=== PATIENT | male | born 1930 | race Caucasian/White ===

== ENCOUNTER 2016-08-25 21:54 | Observation (INO) | payer MEDICARE ==
--- NOTE | ~2016-08-25 | CN ---
Consultation Report [facility] [address] [place]. [address] NAME: KORI HAYDEN : 28 STATUS : ADM Anahi PAT#: [id number] AGE: 85 ADM/REG DATE : 08/25/16 MR#: [id number] REPORT SERV DATE: 08/27/16 DICTATED BY: MICHAEL SHEPARD DATE: 08/26/16 REPORT STATUS : Draft TRANSCRIBED BY: MODL DATE: 08/26/16 CARDIOLOGY CONSULTATION DATE OF CONSULTATION: HISTORY OF PRESENT ILLNESS: The patient is an 85-year-old, white male, who is status post stenting of the proximal left circumflex coronary artery 11/21/2015. At the time of his last cardiac catheterization, left ventricular ejection fraction was 40%. He now presents with syncope and bradycardia. He also was anemic with a hematocrit of 26.3 at the time of admission. His heart rate was running in the 50s. The patient has had his Brilinta and Lopressor stopped. Currently, he is in no distress. PAST MEDICAL HISTORY: Remarkable for coronary artery disease, hypertension, and Alzheimer's. SOCIAL HISTORY: The patient lives in a detention. Does not smoke. FAMILY HISTORY: Positive for coronary disease. REVIEW OF SYSTEMS: The patient has cough, wheeze, sputum production, vomiting, diarrhea, or dysuria. PHYSICAL EXAMINATION: VITAL SIGNS: Blood pressure is 105/70, heart rate is 50 and regular, respirations 16 and nonlabored. HEENT: Remarkable for ecchymosis in the right paraorbital area from his previous fall. NECK: Shows no jugular venous distention with good carotid upstroke. CHEST: Clear. CARDIOVASCULAR: The PMI is lateral to the midclavicular line. S1 is normal. S2 is narrowly split. No gallop is present. ABDOMEN: Soft, nontender with normal bowel sounds. EXTREMITIES: Show no cyanosis, clubbing, or edema. SKIN: Warm and dry with no pallor or icterus. NEURO/PSYCH: The patient is oriented x3 with appropriate affect. DIAGNOSTIC DATA: EKG shows sinus bradycardia with an inferior scar. IMPRESSION: 1. Status post drug-eluting stent to the left circumflex coronary artery on 11/21/2015. 2. Moderate left ventricular dysfunction with an ejection fraction of 40% at the time of last cardiac catheterization. 3. Bradycardia, on Lopressor. 4. Anemia, possibly secondary to gastrointestinal bleed. PLAN: 1. Hold Brilinta and Lopressor. Consultation Report [place] [address] [place]. [address] NAME: KORI HAYDEN : 29 STATUS : ADM Anahi PAT#: [id number] AGE: 85 ADM/REG DATE : 08/25/16 MR#: [id number] REPORT SERV DATE: 08/27/16 DICTATED BY: MICHAEL SHEPARD DATE: 08/26/16 REPORT STATUS : Draft TRANSCRIBED BY: MODL DATE: 08/26/16 2. Transfuse p.r.n. to keep hematocrit in the 28 to 30 range. 3. Check echocardiogram. 4. May need a pacemaker if the patient remains bradycardic after discontinuation of beta blockade. Thank you very much for this consultation. SS/TESSA Michael Shepard M.D., F.A.C.C. / [id number] CC: MD KRYSTA Corrales MD
--- NOTE | ~2016-08-25 | HP ---
History And Physical [place] [id number] [facility] [place]. [address] NAME: KORI HAYDEN : 29 STATUS : ADM Anahi PAT#: [id number] AGE: 85 ADM/REG DATE : 08/25/16 MR#: [id number] REPORT SERV DATE: 08/26/16 DICTATED BY: SOY ALBARRAN DATE: 08/26/16 REPORT STATUS : Draft TRANSCRIBED BY: MODL DATE: 08/26/16 DATE OF ADMISSION: 08/25/2016 CHIEF COMPLAINT: Syncope. HISTORY OF PRESENT ILLNESS: This is an 85-year-old male with a history of hypertension, coronary artery disease, and advanced dementia with Alzheimer's dementia, who presents to the emergency room at [facility] after he had the above- mentioned complaint. History is obtained from the patient's daughter who is at bedside, and reviewing data available on the [employer] system as well. According to the patient's daughter, he had a syncopal episode last Wednesday when his took him from the jail that he usually resides and back home for the weekend. Apparently, he was in the shower with his close at hand when he suddenly vomited and had a syncopal episode and bent down. According to the daughter, this is usually how it happens when he suddenly goes pale, has episode of vomiting and then passes out. He has done this many times. He was taken to [facility] in [place], [place] last Wednesday after this episode, where he was checked out and then discharged home. Today Mr. Hayden was at the jail sitting in a chair when he suddenly for no apparent reason slumped over and passed out. He quickly thereafter became unresponsive as well and quit breathing two or three times, each time came back on his own. They called EMS. The patient was brought here to the emergency room. He has advanced dementia and is unable to contribute anything in the fall of history. In the emergency room, initial workup revealed he had sinus bradycardia at a rate of 50 to 53. He had anemia and his stool Hemoccult was positive. Upon arrival, his blood pressure was 62/40 as well. Hospitalist Service is asked to admit him for further evaluation and treatment. At the time of my evaluation, he denied any chest pain or palpitations. He apparently had no orthopnea. His daughter said, he has not had any recent episodes of cough, fever, or chills. He has not had any nausea or diarrhea. He has had syncopal episodes as mentioned above with loss of consciousness today. No history of recent travel or exposures other than those mentioned above. He has had no significant bleeding from anywhere according to the family or the jail. PAST MEDICAL HISTORY: Significant for history of hypertension, coronary artery disease with stent placement, Alzheimer's dementia, Parkinson's disease. SOCIAL HISTORY: He does not drink, smoke, or recreational drugs. FAMILY HISTORY: Noncontributory. MEDICATIONS: Reviewed by me in the chart today and reordered by me. REVIEW OF SYSTEMS: History And Physical [address] [address] NAME: KORI HAYDEN : 29 STATUS : ADM Anahi PAT#: [id number] AGE: 85 ADM/REG DATE : 08/25/16 MR#: [id number] REPORT SERV DATE: 08/26/16 DICTATED BY: SOY ALBARRAN DATE: 08/26/16 REPORT STATUS : Draft TRANSCRIBED BY: TESSA DATE: 08/26/16 Unavailable as mentioned above. PHYSICAL EXAMINATION: GENERAL: On exam, this is a pleasant 85-year-old, who has Alzheimer's dementia and follows few commands. HEENT: His head appears to be atraumatic, normocephalic, although he has a small bruise under his right eye from a fall on Wednesday. His pupils are equal, reacting to light and accommodating. External ocular muscles are intact. Membranes are moist and pink. Sclerae are nonicteric. NECK: Supple with no jugular venous distention, lymphadenopathy, or thyromegaly. LUNGS: Clear to auscultation with no wheezes, rubs, or crackles. HEART: Sounds were regular with no murmurs, rubs, or gallops. ABDOMEN: Soft, nontender. Bowel sounds are present. EXTREMITIES: Showed no cyanosis, clubbing, or edema. NEUROLOGIC: Grossly intact, although he is unable to follow any commands. He is able to move all four extremities. VITAL SIGNS: His temperature upon arrival was 97.6, pulse 53, respirations 14 a minute, and blood pressure upon arrival was 62/40, at the time of my evaluation it was 116/48, oxygen saturations were 95%, breathing 2 L of oxygen via nasal cannula upon arrival. LABORATORY DATA: Reviewed on the [employer] system showed a sodium of 143, potassium 4.5, chloride 112, and CO2 was 25, BUN was 22 with a creatinine of 1.43, and blood glucose was 157. His calcium was 8.4, magnesium was not checked. CBC showed a white blood cell count of 8800, hemoglobin was 8.7, hematocrit 26.3, and platelet count was 186,000. Urinalysis showed trace ketones, thirty protein, large leukocyte esterase, nitrite was negative, there was greater than 134 wbc's and rare bacteria. Films of the CT scan of his brain were reviewed by me on the PACS today and official radiology comment was also reviewed. There is no acute intracranial pathology at this time. A 12-lead EKG done in the emergency room was reviewed and interpreted by me. Per my interpretation, there is sinus bradycardia with a rate of [address]-T changes. IMPRESSION: 1. Syncope. 2. Symptomatic bradycardia. 3. Anemia secondary to blood loss. 4. Gastrointestinal bleeding. 5. Urinary tract infection. 6. Essential hypertension. 7. Hypotension. 8. Coronary artery disease with stent placement. 9. Advanced dementia. 10.Parkinson's disease. PLAN: We will admit Mr. Hayden to the Hospitalist Service with cardiac telemetry and strict bedrest for 24-hour observation period. His recurrent syncopal episodes probably secondary to symptomatic bradycardia. We will consult Dr. Shepard in the morning and may consider a pacemaker. We will hold beta blockers at this time and hold his antihypertensive History And Physical [address] [address] NAME: KORI HAYDEN : 29 STATUS : ADM Anahi PAT#: [id number] AGE: 85 ADM/REG DATE : 08/25/16 MR#: [id number] REPORT SERV DATE: 08/26/16 DICTATED BY: SOY ALBARRAN DATE: 08/26/16 REPORT STATUS : Draft TRANSCRIBED BY: MODCira DATE: 08/26/16 until his blood pressure stabilizes. We will keep him n.p.o. after midnight tonight and consult Gastroenterology to see him in the morning. Meanwhile, we will follow serial hemoglobin, hematocrit levels, type cross and transfuse one unit of packed red cells now. The patient has responded well to IV fluid boluses in the emergency room. We will continue this cautiously and monitor his blood pressure, which is about 105 systolic at this time. We will also obtain cultures and start him on empiric Rocephin intravenously until we get Gram stains back from the urine cultures. We will place him on SCDs for DVT prophylaxis while he is here now. The patient is DNR according to the family and he has this in the chart. I have discussed the above plans with the patient and his daughter. Questions were answered and she is agreeable to the above recommendations. Further recommendations will follow after subspecialists have had a chance to see him. Hospitalist Service will be following him during his stay here. FLOR Soy Albarran M.D. / [id number] CC: MD Shaun Corrales
--- NOTE | ~2016-08-25 | DS ---
Discharge Summary [place] [address] [place]. [address] NAME: KORI HADYEN : 28 STATUS : DIS Anahi PAT#: [id number] AGE: 85 ADM/REG DATE : 08/25/16 MR#: [id number] REPORT SERV DATE: 08/28/16 DICTATED BY: MORRO CEE DATE: 08/27/16 REPORT STATUS : Draft TRANSCRIBED BY: TESSA DATE: 08/27/16 ADMISSION DATE: 08/25/2016 DISCHARGE DATE: 08/27/2016 CONSULTATION: 1. Cardiology, Dr. Michael Shepard. 2. Gastroenterology, Dr. Wilson. INVASIVE PROCEDURE: None. DISCHARGE DIAGNOSES: 1. Syncope. 2. Symptomatic bradycardia. 3. Gastrointestinal bleed. 4. Normocytic anemia secondary to acute blood loss. 5. Asymptomatic candiduria. 6. Hypertension. 7. History of coronary artery disease, status post drug-eluting stent, now off Brilinta due to concern for gastrointestinal bleed and also off beta-ron due to symptomatic bradycardia. 8. Ischemic cardiomyopathy, ejection fraction 40%. 9. History of Parkinson disease. 10.History of advanced dementia. 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 DISCHARGE CONDITION: Stable. HISTORY OF PRESENT ILLNESS: For detailed HPI, please make reference to Darinel Olivier's dictation on 08/26/2016. In brief; this is an 85-year-old male with medical history of hypertension, coronary artery disease status post drug-eluting stent in 11/2010, advanced dementia due to Alzheimer's disease, who presented to the emergency room after a syncopal episode. In the ER, the patient was found to have a heart rate of 50, blood pressure of 62/40. Neurologic exam was consistent with dementia. EKG showed sinus bradycardia without acute ST-T wave changes. LABORATORY DATA: Shows a creatinine of 1.43. Hemoglobin of 8.7, hematocrit of 26.3, platelets of 186. Urinalysis, positive for large leukocyte esterase with negative nitrites. CT of the brain showed no acute intracranial pathology. An assessment of syncope secondary to bradycardia and orthostatic hypotension was made in the ER. The patient was admitted to the Hospitalist Service for further management of syncopal episode as well as gastrointestinal bleed. HOSPITAL COURSE: 1. Syncopal episode secondary to orthostatic hypotension and bradycardia. The patient was started on gentle IV fluid resuscitation. The patient's blood pressure significantly improved and remained stable. The patient's beta-ron was discontinued. Cardiology Discharge Summary [place] [address] [place]. [address] NAME: KORI HAYDEN : 29 STATUS : DIS Anahi PAT#: [id number] AGE: 85 ADM/REG DATE : 08/25/16 MR#: [id number] REPORT SERV DATE: 08/28/16 DICTATED BY: MORRO CEE DATE: 08/27/16 REPORT STATUS : Draft TRANSCRIBED BY: MODL DATE: 08/27/16 was consulted. Recommended to also hold off Brilinta given history of GI bleed. The patient was placed on cardiac tele monitor throughout the course of this admission. The patient's heart rate gradually improved and remained stable in the 70s to 80s following discontinuation of beta-ron. The patient's blood pressure also remained stable. The patient had no further episode of syncope during this admission. At the time of discharge, the patient was advised to continue to hold off beta-ron and follow up with primary care physician and Cardiology as outpatient. 2. Normocytic anemia secondary to GI bleed. The patient's stool was positive for heme in the ER. Gastroenterology was consulted. There was an extensive discussion between the accelerator technician and the patient's daughter. It was determined given the patient's poor prognosis, advanced age, as well as a DNR/DNI status, not to pursue any invasive/aggressive procedure during the course of this admission. Hence, no EGD or colonoscopy was performed per family wishes. Brilinta was held. The patient was placed on PPI. The patient was transfused 4 units of packed RBC. The patient's hemoglobin improved to 9.3 and remained stable. No further episodes of GI bleed were noted. The patient was advised to continue PPI and continue to follow up with primary care physician. 3. Asymptomatic candiduria. The patient's urinalysis was positive for leukocyte esterase, negative for nitrites. The patient was started on empiric antibiotics with IV Rocephin for treatment of UTI; however, the patient's urine culture came back positive for yeast. IV antibiotics were discontinued. The patient was advised to continue follow up with primary care physician. 4. History of coronary artery disease with drug-eluting stent to left circumflex performed on 11/21/2015 by Cardiology. The patient per Cardiology advised to discontinue Brilinta at this time given concern for severe GI bleed. Also, beta-ron will be discontinued at this time given symptomatic bradycardia with syncope. The patient to continue follow up with Cardiology as an outpatient. No chest pain was reported throughout the course of this admission. 5. Ischemic cardiomyopathy with EF of 40%. The patient remained euvolemic throughout the course of this admission. No evidence of acute decompensated heart failure. The patient was advised to continue follow up with primary care physician. 6. History of Parkinson disease. The patient's carbidopa and levodopa was continued. 7. Advanced dementia. The patient's family was at the bedside to the patient throughout the course of this admission. The patient's was administered. The patient was pleasantly demented. No behavioral disturbance was noticed during the admission. The patient will be discharged back to [facility] to continue follow up with primary care physician. The above plans were discussed with the patient's daughter who was at the bedside at the time of discharge. The patient's family was in agreement with the above plan. DISCHARGE MEDICATIONS: 1. Aspirin 81 mg p.o. daily. 2. BuSpar 10 mg p.o. b.i.d. 3. Sinemet 25/100 mg tab p.o. b.i.d. 4. Vitamin B12 1000 mcg p.o. daily. 5. Vitamin D3 1000 units p.o. Wednesday, Wednesday, Wednesday, , Wednesday in the morning. 6. Colace 100 mg p.o. b.i.d. Discharge Summary [address] [address] NAME: KORI HAYDEN : 29 STATUS : DIS Anahi PAT#: [id number] AGE: 85 ADM/REG DATE : 08/25/16 MR#: [id number] REPORT SERV DATE: 08/28/16 DICTATED BY: MORRO CEEE DATE: 08/27/16 REPORT STATUS : Draft TRANSCRIBED BY: TESSA DATE: 08/27/16 7. Iron 200 mg p.o. b.i.d. 8. Finasteride 5 mg p.o. in the morning. 9. Melatonin 5 mg p.o. every 12 hours p.r.n. 10.Lisinopril 5 mg p.o. b.i.d. 11.Omeprazole 20 mg p.o. daily. 12.Seroquel 200 mg p.o. at 6 p.m. 13.Effexor 75 mg cap p.o. daily. 14.Dulcolax 10 mg p.o. p.r.n. DISCHARGE CONDITION: Stable. DISCHARGE FOLLOWUP: 1. Follow up with primary care physician. 2. Follow up with Cardiology as outpatient. DISCHARGE DISPOSITION: To Assisted [facility]. Greater than 35 minutes was used to prepare this patient's discharge, reconcile medication, advise the patient on discharge plans and followup. PRABHJOTO/TESSA Morro Cee MD / [id number] CC: Morro Cee MD Shaun [facility]
--- NOTE | ~2016-08-25 | CN ---
Consultation Report [facility] [address] [place]. [address] NAME: KORI HAYDEN : 29 STATUS : DIS Anahi PAT#: [id number] AGE: 85 ADM/REG DATE : 08/25/16 MR#: [id number] REPORT SERV DATE: 08/27/16 DICTATED BY: MARGARITA WILSON DATE: 08/27/16 REPORT STATUS : Draft TRANSCRIBED BY: MODL DATE: 08/27/16 GI CONSULTATION NOTE DATE OF CONSULTATION: 08/26/2016 REASON FOR CONSULTATION: Anemia and FOBT positive. HISTORY OF PRESENT ILLNESS: Mr. Hayden is an 85-year-old white male with a history of dementia and Parkinson disease and is a DNR. He presented to [place] with syncope and bradycardia into the 50s. Blood pressure 62/40. He also had some nausea without any hematemesis or coffee-grounds emesis. He denies any overt signs of bleeding. No hematochezia or bright red blood per rectum. He is on iron until his stools tend to be dark, but there has been no change in consistency or smell with these per his daughter who was able to provide collateral information and is at his bedside. PAST MEDICAL HISTORY: Hypertension, coronary artery disease, dementia, Parkinson disease. PAST SURGICAL HISTORY: Stent placement. FAMILY HISTORY: Noncontributory. SOCIAL HISTORY: No smoking, alcohol, or drug use. Lives with his . MEDICATIONS: Reviewed. ALLERGIES: REVIEWED. PHYSICAL EXAMINATION: VITAL SIGNS: The patient is afebrile. His vital signs have been stable. GENERAL: The patient is awake, but not oriented to time or place. HEENT: Atraumatic, normocephalic. Mucous membranes moist. He does have some hematoma on his extremities. CARDIAC: S1, S2. CHEST: Clear, but poor inspiratory and expiratory effort. ABDOMEN: Soft, nontender, and nondistended. Bowel sounds normoactive. LABORATORY DATA: Show WBC 5.8, hemoglobin 9.1, hematocrit 26.4, platelets 179, MCV 90.8. Sodium 144, potassium 4.6, chloride 112, bicarb 24, BUN 21, creatinine 1.25, glucose 86. IMPRESSION AND PLAN: Anemia, Hemoccult positive. Per his daughter, he had a recent colonoscopy by Dr. Way a few months ago and so, no need for endoscopic evaluation at this time. The patient has also had DNR with multiple comorbidities and does not appear to be actively bleeding. Given the above, it would defer any endoscopic evaluation, which is also the patient and his family's wishes. Please call with any questions. Consultation Report [facility] [address] [place]. [address] NAME: KORI HAYDEN : 28 STATUS : DIS Anahi PAT#: [id number] AGE: 85 ADM/REG DATE : 08/25/16 MR#: [id number] REPORT SERV DATE: 08/27/16 DICTATED BY: MARGARITA WILSON DATE: 08/27/16 REPORT STATUS : Draft TRANSCRIBED BY: MODL DATE: 08/27/16 SARWAT/TESSA Margarita Wilson MD / [id number] CC: MD Shaun Corrales
[2016-08-25 21:21] LABS: BASOPHILS 0.1 %; BASOPHILS ABSOLUTE 0.01 10/3/uL (0.0-0.16); EOSINOPHILS 0.9 %; EOSINOPHILS ABSOLUTE 0.08 10/3/uL (0.0-0.53); HEMATOCRIT 26.3 % (40.0-51.0); HEMOGLOBIN 8.7 g/dL (13.6-17.8); IMMATURE GRANULOCYTES 0.6 %; IMMATURE GRANULOCYTES ABSOLUTE 0.05 10/3/uL (0.0-0.11); LYMPHOCYTES 11.2 %; LYMPHOCYTES ABSOLUTE 0.99 10/3/uL (0.67-4.30); MEAN CORPUS HGB CONC 33.1 g/dL (32.0-36.0); MEAN CORPUSCULAR HEMOGLOB 30.5 pg (26.0-34.0); MEAN PLATELET VOLUME 9.4 fL (9.2-13.0); MONOCYTES 6.2 %; MONOCYTES ABSOLUTE 0.55 10/3/uL (0.21-1.20); NEUTROPHILS ABSOLUTE 7.14 10/3/uL (2.02-8.40); PLATELET COUNT 186 10/3/uL (150-400); RBC DISTRIBUTION WIDTH 15.1 % (12.0-16.0); RED CELL COUNT 2.85 10/6/uL (4.7-6.1)
[2016-08-25 21:29] LABS: ASCORBIC ACID (UR NOT ORDER) NEG (NEG); BILIRUBIN, URINE NEGATIVE (NEG); ER URINALYSIS TAT 0 Hrs 11 Mins; KETONE, URINE TRACE MG/DL (NEG); LEUKOCYTE ESTERASE(NOT OR LARGE (NEG); NITRITE (URINE) NEG (NEG); WBC (NOT ORDERED) (RFLEX) 134 (0-5)
[2016-08-25 21:29] LABS: ER CBC TAT 0 Hrs 11 Mins; MANUAL DIFF NO %; MEAN CORPUSCULAR VOLUME 92.3 fL (80-100); WHITE BLOOD CELLS 8.8 10/3/uL (4.5-10.5)
[2016-08-25 21:39] LABS: A/G RATIO 1.1 (0.7-1.9); ALBUMIN 3.2 G/DL (3.5-5.0); ALKALINE PHOSPHATASE 71 U/L (45-117); BUN (BLOOD UREA NITROGEN) 22 MG/DL (6-23); CALCIUM, SERUM 8.4 MG/DL (8.5-10.4); CHLORIDE, SERUM 112 MMOL/L (96-112); CO2 (CARBON DIOXIDE) 25 MMOL/L (24-34); CREATININE 1.43 MG/DL (0.70-1.30); GFR AFRICAN AMERICAN 51 ML/MIN (>=60); GFR NON AFRICAN AMERICAN 44 ML/MIN (>=60); GLOBULIN 2.9 G/DL (2.5-4.1); POTASSIUM, SERUM 4.5 MMOL/L (3.5-5.3); SGOT(AST) 11 U/L (5-40); SGPT(ALT) 9 U/L (5-65); SODIUM, SERUM 143 MMOL/L (135-148); TOTAL PROTEIN 6.1 G/DL (6.0-8.5); TROPONIN I <0.02 NG/ML (<0.05)
[2016-08-25 21:40] LABS: GLUCOSE, SERUM 157 MG/DL (60-99); TOTAL BILIRUBIN 0.3 MG/DL (0-1.2)
[2016-08-25 21:45] LABS: BAND NEUTROPHILS 1 %; ER DIFF TAT 0 Hrs 27 Mins; LYMPHOCYTES 8 %; MONOCYTES 1 %; MONOCYTES ABSOLUTE (CALC) 0.09 10/3/uL (0.21-1.20); NEUTROPHILS ABSOLUTE (CALC) 8.01 10/3/uL (2.02-8.40); PLATELET ESTIMATE ADQ (ADEQUATE); RBC MORPHOLOGY NORM (NORMAL); SEGMENTED NEUTROPHIL (0) 90 %; TOTAL NUCLEATED CELLS 100
[~2016-08-25 21:54] MED LIST: BRILINTA90 MG PO; BUSPAR10 PO; EFFEXXR75 PO; LIPITOR40 PO; LOP25 PO; MELATONIN1 M1 PO; PRIN20 PO; XANAX XR0.5 MG PO
[2016-08-25] MEDS ORDERED: BUSPAR10 PO (23:15)
[2016-08-25] MEDS ORDERED: SIN25 PO (23:16)
[2016-08-25] MEDS ORDERED: PRIN5 PO (23:16)
[2016-08-25] MEDS ORDERED: DSS PO (23:16)
[2016-08-25] MEDS ORDERED: EZFE 200200 MG PO (23:16)
[2016-08-25] MEDS ORDERED: LOP25 PO (23:17)
[2016-08-25] MEDS ORDERED: MIRALAX POWDER1 PKT PO (23:17)
[2016-08-25] MEDS ORDERED: NUEDEXTA 20-101 EACH PO (23:17)
[2016-08-25] MEDS ORDERED: PRILO PO (23:17)
[2016-08-25] MEDS ORDERED: MAXIMUM D3 PO (23:18)
[2016-08-25] MEDS ORDERED: EFFEXXR75 PO (23:18)
[2016-08-25] MEDS ORDERED: BRILINTA90 MG PO (23:18)
[2016-08-25] MEDS ORDERED: FLOMAX4 PO (23:18)
[2016-08-25] MEDS ORDERED: SEROQUEL200 MG PO (23:18)
[2016-08-25] MEDS ORDERED: MELATONIN5 M1 PO ×2 (23:19→23:22)
[2016-08-25] MEDS ORDERED: PROSCAR5 PO (23:19)
[2016-08-25] MEDS ORDERED: ASAB PO (23:19)
[2016-08-25] MEDS ORDERED: B121000P IM (23:19)
[2016-08-25] MEDS ORDERED: PROBIOTIC POWDER PO (23:20)
[2016-08-25] MEDS ORDERED: T PO (23:20)
[2016-08-25] MEDS ORDERED: CORICIDI1 PO (23:21)
[2016-08-25] MEDS ORDERED: BISR PR (23:21)
[2016-08-25] MEDS ORDERED: KLONO5 PO (23:22)
[2016-08-25] MEDS ORDERED: NITROSTAT0.4 MG SL (23:22)
[2016-08-25] MEDS ORDERED: ZOFRAN ODT4 MG SL (23:23)
[2016-08-25] MEDS ORDERED: AUG875 PO (23:24)
[2016-08-26 09:20] LABS: BASOPHILS 0.3 %; BASOPHILS ABSOLUTE 0.02 10/3/uL (0.0-0.16); EOSINOPHILS 3.4 %; HEMATOCRIT 26.6 % (40.0-51.0); HEMOGLOBIN 9.1 g/dL (13.6-17.8); IMMATURE GRANULOCYTES 0.5 %; IMMATURE GRANULOCYTES ABSOLUTE 0.03 10/3/uL (0.0-0.11); LYMPHOCYTES 28.4 %; LYMPHOCYTES ABSOLUTE 1.65 10/3/uL (0.67-4.30); MEAN CORPUS HGB CONC 34.2 g/dL (32.0-36.0); MEAN CORPUSCULAR HEMOGLOB 31.1 pg (26.0-34.0); MEAN CORPUSCULAR VOLUME 90.8 fL (80-100); MEAN PLATELET VOLUME 10.4 fL (9.2-13.0); MONOCYTES 10.1 %; MONOCYTES ABSOLUTE 0.59 10/3/uL (0.21-1.20); NEUTROPHILS 57.3 %; NEUTROPHILS ABSOLUTE 3.33 10/3/uL (2.02-8.40); PLATELET COUNT 179 10/3/uL (150-400); RBC DISTRIBUTION WIDTH 15.5 % (12.0-16.0); RED CELL COUNT 2.93 10/6/uL (4.7-6.1); WHITE BLOOD CELLS 5.8 10/3/uL (4.5-10.5)
[2016-08-26 09:27] LABS: MANUAL DIFF NO %
[2016-08-26 09:37] LABS: BUN (BLOOD UREA NITROGEN) 21 MG/DL (6-23); CALCIUM, SERUM 8.5 MG/DL (8.5-10.4); CHLORIDE, SERUM 112 MMOL/L (96-112); CO2 (CARBON DIOXIDE) 24 MMOL/L (24-34); CREATININE 1.25 MG/DL (0.70-1.30); GFR AFRICAN AMERICAN 60 ML/MIN (>=60); GFR NON AFRICAN AMERICAN 52 ML/MIN (>=60); POTASSIUM, SERUM 4.6 MMOL/L (3.5-5.3); SODIUM, SERUM 144 MMOL/L (135-148)
[2016-08-26 09:38] LABS: GLUCOSE, SERUM 86 MG/DL (60-99)
[2016-08-26 15:17] LABS: HEMATOCRIT 27.6 % (40.0-51.0); HEMOGLOBIN 9.3 g/dL (13.6-17.8)
[2016-08-27 10:12] LABS: BASOPHILS 0.5 %; BASOPHILS ABSOLUTE 0.03 10/3/uL (0.0-0.16); EOSINOPHILS 2.5 %; EOSINOPHILS ABSOLUTE 0.16 10/3/uL (0.0-0.53); HEMATOCRIT 27.4 % (40.0-51.0); HEMOGLOBIN 9.3 g/dL (13.6-17.8); IMMATURE GRANULOCYTES 0.2 %; IMMATURE GRANULOCYTES ABSOLUTE 0.01 10/3/uL (0.0-0.11); LYMPHOCYTES 15.6 %; MEAN CORPUS HGB CONC 33.9 g/dL (32.0-36.0); MEAN CORPUSCULAR HEMOGLOB 30.9 pg (26.0-34.0); MEAN PLATELET VOLUME 9.7 fL (9.2-13.0); MONOCYTES 6.7 %; MONOCYTES ABSOLUTE 0.43 10/3/uL (0.21-1.20); NEUTROPHILS 74.5 %; NEUTROPHILS ABSOLUTE 4.78 10/3/uL (2.02-8.40); PLATELET COUNT 163 10/3/uL (150-400); RBC DISTRIBUTION WIDTH 15.5 % (12.0-16.0); RED CELL COUNT 3.01 10/6/uL (4.7-6.1); WHITE BLOOD CELLS 6.4 10/3/uL (4.5-10.5)
[2016-08-27 10:13] LABS: MANUAL DIFF NO %
[2016-08-27 10:23] LABS: ALBUMIN 2.9 G/DL (3.5-5.0); CALCIUM, SERUM 7.8 MG/DL (8.5-10.4); CHLORIDE, SERUM 116 MMOL/L (96-112); CO2 (CARBON DIOXIDE) 24 MMOL/L (24-34); CREATININE 1.16 MG/DL (0.70-1.30); GFR AFRICAN AMERICAN 66 ML/MIN (>=60); GFR NON AFRICAN AMERICAN 57 ML/MIN (>=60); PHOSPHORUS, SERUM 2.5 MG/DL (2.5-4.5); POTASSIUM, SERUM 3.9 MMOL/L (3.5-5.3); SODIUM, SERUM 146 MMOL/L (135-148)
[2016-08-27 10:25] LABS: BUN (BLOOD UREA NITROGEN) 12 MG/DL (6-23); GLUCOSE, SERUM 124 MG/DL (60-99)
[2016-08-27 16:13] LABS: HEMOGLOBIN 10.1 g/dL (13.6-17.8)
[2016-08-27 16:15] LABS: HEMATOCRIT 30.2 % (40.0-51.0)
== END 2016-08-27 17:40 | disposition home or self-care (01) ==
LOC: ER 21:54 → 7NO 23:55
PROVIDERS: Emergency Medicine; Hospitalist; Internal Medicine Pulmonary Disease
DX: R55 Syncope and collapse (principal); R00.1 Bradycardia, unspecified; K92.2 Gastrointestinal hemorrhage, unspecified; D62 Acute posthemorrhagic anemia; I10 Essential (primary) hypertension; I25.10 Atherosclerotic heart disease of native coronary artery without angina pectoris; G20 Parkinson's disease; N40.0 Benign prostatic hyperplasia without lower urinary tract symptoms; I25.5 Ischemic cardiomyopathy; G30.9 Alzheimer's disease, unspecified; F02.80 Dementia in other diseases classified elsewhere, unspecified severity, without behavioral disturbance, psychotic disturbance, mood disturbance, and anxiety; N39.0 Urinary tract infection, site not specified
CPT/HCPCS: 36415; 36430; 70450; 80048; 80053; 80069; 81001; 83690; 83735; 84100; 84443; 84484; 85014; 85018; 85025; 86850; 86900; 86901; 86920; 87040; 87086; 93005; 93306; 96374; 96375; 96376; 97162-GP; 99285; A9270-GY; C9113; G0378; G8978-CK-GP; G8979-CJ-GP; P9016

== ENCOUNTER 2016-12-26 08:55 | Inpatient (IN) | payer MEDICARE ==
[~2016-12-26] VITALS: Ht 180.3 cm; Wt 104.5 kg
--- NOTE | ~2016-12-26 | DS ---
Discharge Summary [facility] [address] [place]. [address] NAME: KORI HAYDEN : 28 STATUS : DIS IN PAT#: [id number] AGE: 86 ADM/REG DATE : 12/26/16 MR#: [id number] REPORT SERV DATE: 12/30/16 DICTATED BY: KRISTEN KELLER DATE: 12/29/16 REPORT STATUS : Draft TRANSCRIBED BY: MODL DATE: 12/29/16 ADMISSION DATE: 12/26/2016 DISCHARGE DATE: 12/29/2016 DISCHARGE DIAGNOSES: 1. Sepsis due to catheter associated urinary tract infection. 2. Acute kidney injury due to sepsis and JAMIE inhibitor, lisinopril. 3. Chronic urinary retention due to benign prostatic hypertrophy with chronic indwelling Broussard catheter. 4. Senile dementia. 5. Suspected Parkinson disease. 6. Hypertension. 7. History of coronary artery disease with previous drug-eluting stent to the circumflex in November 2015. 8. Previous gastrointestinal bleed in August 2016 while on aspirin and Brilinta. 9. Previous syncope and bradycardia while on beta ron in August 2016. 10.Chronic thrombocytopenia. HISTORY: The patient has dementia and sometimes stays at assisted living facility, but his predominantly takes care of him at home that he was experiencing rigors, fever, chills which did not improve despite Tylenol. She brought him to the emergency room on 12/26/2016. His temperature was a 103.8, with respirations 22, blood pressure 132/81, pulse 93, O2 saturation 94%. He at that time was found to have evidence of acute kidney injury and was referred to our team for inpatient care. HOSPITAL COURSE: The patient was placed on IV fluids with lactated Ringer's. He was also given Rocephin 1 g IV daily and his home lisinopril was held. The patient's kidney function rapidly improved, so his creatinine by discharge 1.18 and BUN of 20 where as on admission his BUN was 33 with creatinine of 2.07. CT scan of the abdomen and pelvis on 12/26/2016 without contrast showing no acute intraabdominal pathology. No stones. There was mild insufficiency fracture of T12 on L1, indeterminate age; moderate atherosclerotic calcifications in the abdominal aorta. Chest x-ray in the emergency room showed shallow inspiration, possible right upper lobe infiltrate, but otherwise unremarkable findings. The patient did not sleep the first night, but slept well thereafter and his states he is up and ambulating and back to his usual state which unfortunately does include significant dementia. states since he has been placed on a combination of dextromethorphan with quinidine (Nuedexta)he has had much less agitation. She takes him out to restaurants. They go shopping at [employer]. He is ambulatory. He interacts with the grandchild and with their pet cats, and she is overall very pleased with the improvement in his quality of life. She does emphasize that by his own living will he is DNR and do not resuscitate if he were to have a cardiac or pulmonary arrest. Discharge Summary [place] [id number] [facility] [place]. [address] NAME: KORI HAYDEN : 28 STATUS : DIS IN PAT#: [id number] AGE: 86 ADM/REG DATE : 12/26/16 MR#: [id number] REPORT SERV DATE: 12/30/16 DICTATED BY: KRISTEN KELLER DATE: 12/29/16 REPORT STATUS : Draft TRANSCRIBED BY: TESSA DATE: 12/29/16 The patient's urine here has grown out greater than 100,000 mixture of gram-positive cocci and some gram-negative bacilli. The patient's Broussard catheter that he had at presentation was taken out and a new one was placed with that alone he began to improve along with the antibiotic Rocephin. He is felt stable for discharge and to resume [facility]. We will have him take cefadroxil 1000 mg b.i.d. for seven days in addition to his usual aspirin 81 mg daily, BuSpar 10 mg b.i.d., Sinemet 25/100 b.i.d., vitamin B12 a 1000 mcg injected every 30 days vitamin D a 1000 units daily Colace 100 mg daily. Dextromethorphan HBr with quinidine 20/10 one capsule every 12 hours, iFerex 150 mg b.i.d. Proscar 5 mg daily, melatonin 5 mg at bedtime, Prilosec 20 mg daily, MiraLAX one packet daily, Seroquel 200 mg daily ( states this was started for owning behavior and he has been on it for some time.) Effexor XR 75 mg daily, Tylenol p.r.n. pain or fever, Dulcolax suppository p.r.n., nitroglycerin 0.4 mg sublingual p.r.n., Zofran 4 mg q.4 hours p.r.n. nausea, Klonopin 0.5 mg at bedtime p.r.n. agitation. He takes some type of probiotic once a day, trimethoprim 100 mg daily, will be restarted on 01/03/2017, lisinopril 5 mg b.i.d. will be restarted on 01/03/2017. PCP may want to give consideration for either reducing or holding Seroquel since his behavior has been doing better and there is potential for QT prolongation when given along with dextromethorphan and quinidine same is also true of his p.r.n. Zofran. FOLLOWUP: He will follow up with his PCP, Dr. Germain Brooks, and with his urologist, Dr. Capellan, and with his director field services, Dr. Shepard, , Dr. Rachel Wilson. I spent 63 minutes today with the patient with his family and with discharge plan. RSG/MODL Kristen Keller M.D. / [id number] CC: Igor Romero MD Steven Stubblefield, M.D., F.A.C.C. Igor Martinez Sr.,
--- NOTE | ~2016-12-26 | HP ---
History And Physical [place] [id number] [facility] [place]. [address] NAME: KORI HAYDEN : 28 STATUS : ADM IN [facility]#: [id number] AGE: 86 ADM/REG DATE : 12/26/16 MR#: [id number] REPORT SERV DATE: 12/26/16 DICTATED BY: BRENDA CAPELLAN DATE: 12/26/16 REPORT STATUS : Draft TRANSCRIBED BY: MODCira DATE: 12/26/16 DATE OF ADMISSION: 12/26/2016 CHIEF COMPLAINT: The patient was brought into the ER by his because of fever with chills and rigors for the last 24 hours. The patient's mentioned that she had to bring him on to the ER via ambulance because his fever did not respond to the Tylenol. The patient started having fever with chills and rigors since yesterday. The patient has dementia, so mostly takes care of him and she gave him Tylenol and it would break his fever some, but then his temperature would shoot right back up. She gave him some more Tylenol at nighttime, but after midnight his fever started getting back again and this morning when he started having chills and rigors with a fever, she thought that the patient may be having another urinary tract infection as he frequently gets catheter-related infections and decided to bring him in. The patient himself is a poor historian because of advanced dementia. states that he had no other complaints whatsoever. The patient denies any chest pain, shortness of breath, cough, nausea, vomiting, diarrhea, blood in urine, etc. The patient has a chronic indwelling Broussard catheter and the urine in the bag is cloudy. PAST MEDICAL HISTORY: Significant for coronary artery disease, status post stent placement. The patient continues to have inoperable coronary artery disease and has been told that he is not a candidate for CABG. The patient also has advanced dementia, hypertension, and he lives with his sometimes in [place] and sometimes in their [place] home. states that sometimes when she has to go out of town, he stays at an assisted living that cares for Alzheimer's patients. SOCIAL HISTORY: The patient does not smoke or drink any alcohol. Denies any illicits. FAMILY HISTORY: Positive for dementia in both sisters. ALLERGIES: THE PATIENT IS ALLERGIC TO TETRACYCLINE. HOME MEDICATIONS: Include aspirin 81 mg once a day, Proscar 5 mg once a day, melatonin 5 mg once a day, Prilosec 20 mg once a day, Seroquel 200 mg p.o. daily, Bactrim 100 mg once a day, Effexor 75 mg once a day, BuSpar 10 mg twice a day, Sinemet one tablet p.o. b.i.d., lisinopril 5 mg p.o. b.i.d., Nuedexta one capsule p.o. b.i.d., Klonopin 0.5 mg p.o. q.4 hours p.r.n. for agitation, and other p.r.n. medications. PHYSICAL EXAMINATION: GENERAL: On examination, the patient is alert, oriented to place somewhat. He is oriented to person and identifies his , but mildly confused with time. The patient is not a good historian and most history was obtained from his who is at bedside. Skin and mucous membranes appear moist. VITAL SIGNS: His vital signs at this time show that his blood pressure is 118/55, temperature afebrile after the patient was given Tylenol while here in the ER, O2 sats is 96% on room air. His pulse is 82 per minute. History And Physical [address] [address] NAME: KORI HAYDEN : 28 STATUS : ADM IN [facility]#: [id number] AGE: 86 ADM/REG DATE : 12/26/16 MR#: [id number] REPORT SERV DATE: 12/26/16 DICTATED BY: BRENDA CAPELLAN DATE: 12/26/16 REPORT STATUS : Draft TRANSCRIBED BY: TESSA DATE: 12/26/16 HEENT: Unremarkable. NECK: There is no JVD, thyromegaly, or lymphadenopathy. CARDIOVASCULAR: S1, S2 appreciated. Sinus rhythm. No murmurs, rubs, or gallops noted. RESPIRATORY: Clear lungs. No rales or rhonchi noted. Good respiratory effort. ABDOMEN: Soft, nontender, nondistended. Bowel sounds are appreciated. No organomegaly noted. Even though there is no guarding, the patient states that there is a little discomfort only when I push hard in the left lower quadrant of the belly. EXTREMITIES: There is no pedal edema. Pedal pulses are well felt. NEUROLOGICAL: The patient with advanced dementia. No neurological deficits other than that. MUSCULOSKELETAL: Normal. LABORATORY DATA: 1. Labs that I have on this patient from today include the following CBC shows normal WBC, hemoglobin 9.7, hematocrit 29. Lactate level is normal at 0.9. Comprehensive metabolic profile shows normal electrolytes. BUN is 33, creatinine is elevated at 2.07. LFTs are normal. 2. His urinalysis shows cloudy urine, large leukocyte esterase, several wbc's, and also few bacteria. 3. Portable chest x-ray shows shallow inspiration, minimal right lower lobe infiltrate. I doubt pneumonia at this time, otherwise no acute cardiopulmonary abnormality. ASSESSMENT: 1. Dehydration and acute kidney injury. 2. Urinary tract infection with acute cystitis. 3. Advanced dementia/Alzheimer's. 4. Chronic Parkinson disease. 5. Coronary artery disease, status post stent placement, which is stable. PLAN: 1. To admit the patient. 2. Start him on IV fluids for hydration and to correct the JULIANO. 3. Start him on IV Rocephin and empiric antibiotic to cover his acute cystitis. 4. Give him Tylenol p.r.n. for a temperature greater than 101. 5. Send off his urine for culture and sensitivity. 6. Obtain CT scan of the abdomen without contrast as he complains of some discomfort in the left lower quadrant. I mainly want to rule out acute pyelonephritis in this gentleman with febrile illness and catheter-related UTI. We will admit the patient and I will follow the patient. RRA/MODL Brenda Capellan M.D. History And Physical [address] [address] NAME: KORI HAYDEN : 28 STATUS : ADM IN [facility]#: [id number] AGE: 86 ADM/REG DATE : 12/26/16 MR#: [id number] REPORT SERV DATE: 12/26/16 DICTATED BY: BRENDA CAPELLAN DATE: 12/26/16 REPORT STATUS : Draft TRANSCRIBED BY: MODL DATE: 12/26/16 / [id number] CC: Brenda Capellan M.D.
[~2016-12-26 08:55] MED LIST changes: +ASAB PO; +AUG875 PO; +B121000P IM; +BISR PR; +CORICIDI1 PO; +DSS PO; +EZFE 200200 MG PO; +FLOMAX4 PO; +KLONO5 PO; +MAXIMUM D3 PO; +MELATONIN5 M1 PO; +MIRALAX POWDER1 PKT PO; +NITROSTAT0.4 MG SL; +NUEDEXTA 20-101 EACH PO; +PRILO PO; +PRIN5 PO; +PROBIOTIC POWDER PO; +PROSCAR5 PO; +SEROQUEL200 MG PO; +SIN25 PO; +T PO; +ZOFRAN ODT4 MG SL
[2016-12-26 09:56] LABS: BASOPHILS 0.1 %; BASOPHILS ABSOLUTE 0.01 10/3/uL (0.0-0.16); EOSINOPHILS 1.2 %; EOSINOPHILS ABSOLUTE 0.09 10/3/uL (0.0-0.53); HEMOGLOBIN 9.7 g/dL (13.6-17.8); IMMATURE GRANULOCYTES 0.3 %; IMMATURE GRANULOCYTES ABSOLUTE 0.02 10/3/uL (0.0-0.11); LYMPHOCYTES 8.4 %; LYMPHOCYTES ABSOLUTE 0.64 10/3/uL (0.67-4.30); MEAN CORPUS HGB CONC 33.4 g/dL (32.0-36.0); MEAN CORPUSCULAR VOLUME 92.7 fL (80-100); MEAN PLATELET VOLUME 10.8 fL (9.2-13.0); MONOCYTES 13.3 %; MONOCYTES ABSOLUTE 1.01 10/3/uL (0.21-1.20); NEUTROPHILS 76.7 %; NEUTROPHILS ABSOLUTE 5.82 10/3/uL (2.02-8.40); RBC DISTRIBUTION WIDTH 13.7 % (12.0-16.0); RED CELL COUNT 3.13 10/6/uL (4.7-6.1); WHITE BLOOD CELLS 7.6 10/3/uL (4.5-10.5)
[2016-12-26 09:57] LABS: PLATELET COUNT 108 10/3/uL (150-400)
[2016-12-26 09:58] LABS: MANUAL DIFF NO %
[2016-12-26 10:02] LABS: ASCORBIC ACID (UR NOT ORDER) 40 (NEG); BILIRUBIN, URINE NEGATIVE (NEG); ER URINALYSIS TAT 0 Hrs 12 Mins; KETONE, URINE NEGATIVE (NEG); LEUKOCYTE ESTERASE(NOT OR LARGE (NEG); NITRITE (URINE) NEG (NEG); WBC (NOT ORDERED) (RFLEX) 51 (0-5)
[2016-12-26 10:10] LABS: ALBUMIN 3.2 G/DL (3.5-5.0); ALKALINE PHOSPHATASE 77 U/L (45-117); BUN (BLOOD UREA NITROGEN) 33 MG/DL (6-23); CALCIUM, SERUM 8.3 MG/DL (8.5-10.4); CHLORIDE, SERUM 110 MMOL/L (96-112); CO2 (CARBON DIOXIDE) 23 MMOL/L (24-34); CREATININE 2.07 MG/DL (0.70-1.30); GFR AFRICAN AMERICAN 32 ML/MIN (>=60); GFR NON AFRICAN AMERICAN 28 ML/MIN (>=60); GLOBULIN 3.3 G/DL (2.5-4.1); GLUCOSE, SERUM 114 MG/DL (60-99); POTASSIUM, SERUM 4.4 MMOL/L (3.5-5.3); SGOT(AST) 16 U/L (5-40); SGPT(ALT) 10 U/L (5-65); SODIUM, SERUM 141 MMOL/L (135-148); TOTAL BILIRUBIN 0.6 MG/DL (0-1.2); TOTAL PROTEIN 6.5 G/DL (6.0-8.5)
[2016-12-26 10:29] LABS: LACTATE 0.9 MMOL/L (0.3-2.4)
[2016-12-26] MEDS ORDERED: HALF81 PO (11:14)
[2016-12-26] MEDS ORDERED: VITAMIN D1000 UNI1 PO (11:15)
[2016-12-26] MEDS ORDERED: B121000P IM (11:16)
[2016-12-26] MEDS ORDERED: PROSCAR5 PO (11:16)
[2016-12-26] MEDS ORDERED: MELATONIN5 M1 PO (11:17)
[2016-12-26] MEDS ORDERED: PROBIOTIC PO (11:19)
[2016-12-26] MEDS ORDERED: PRILO PO (11:20)
[2016-12-26] MEDS ORDERED: MIRALAX POWDER1 PKT PO (11:21)
[2016-12-26] MEDS ORDERED: PROLOP100 PO (11:24)
[2016-12-26] MEDS ORDERED: SEROQUEL200 MG PO (11:24)
[2016-12-26] MEDS ORDERED: BUSPAR10 PO (11:25)
[2016-12-26] MEDS ORDERED: EFFEXXR75 PO (11:25)
[2016-12-26] MEDS ORDERED: SIN25 PO (11:26)
[2016-12-26] MEDS ORDERED: D.O.S.100 MG PO (11:26)
[2016-12-26] MEDS ORDERED: ZESTRIL5 MG PO (11:29)
[2016-12-26] MEDS ORDERED: IFEREX 151 PO (11:29)
[2016-12-26] MEDS ORDERED: NUEDEXTA 20-101 EACH PO (11:30)
[2016-12-26] MEDS ORDERED: BISR PR (11:31)
[2016-12-26] MEDS ORDERED: T PO (11:31)
[2016-12-26] MEDS ORDERED: KLONO5 PO (11:32)
[2016-12-26] MEDS ORDERED: NITROQUICK0.4 MG SL (11:33)
[2016-12-26] MEDS ORDERED: ZOFRAN ODT4 MG PO (11:33)
[2016-12-26 14:52] LABS: PROCALCITONIN 0.07 ng/mL (<0.5)
[2016-12-27 08:41] LABS: BASOPHILS 0.2 %; BASOPHILS ABSOLUTE 0.01 10/3/uL (0.0-0.16); EOSINOPHILS 3.5 %; EOSINOPHILS ABSOLUTE 0.22 10/3/uL (0.0-0.53); HEMATOCRIT 26.9 % (40.0-51.0); HEMOGLOBIN 8.8 g/dL (13.6-17.8); IMMATURE GRANULOCYTES 0.3 %; IMMATURE GRANULOCYTES ABSOLUTE 0.02 10/3/uL (0.0-0.11); LYMPHOCYTES 19.4 %; LYMPHOCYTES ABSOLUTE 1.22 10/3/uL (0.67-4.30); MEAN CORPUS HGB CONC 32.7 g/dL (32.0-36.0); MEAN CORPUSCULAR HEMOGLOB 30.6 pg (26.0-34.0); MEAN CORPUSCULAR VOLUME 93.4 fL (80-100); MEAN PLATELET VOLUME 10.9 fL (9.2-13.0); MONOCYTES ABSOLUTE 0.69 10/3/uL (0.21-1.20); NEUTROPHILS 65.6 %; NEUTROPHILS ABSOLUTE 4.13 10/3/uL (2.02-8.40); PLATELET COUNT 117 10/3/uL (150-400); RBC DISTRIBUTION WIDTH 13.8 % (12.0-16.0); RED CELL COUNT 2.88 10/6/uL (4.7-6.1); WHITE BLOOD CELLS 6.3 10/3/uL (4.5-10.5)
[2016-12-27 08:44] LABS: MANUAL DIFF NO %
[2016-12-27 08:55] LABS: A/G RATIO 0.8 (0.7-1.9); ALBUMIN 2.6 G/DL (3.5-5.0); CALCIUM, SERUM 8.4 MG/DL (8.5-10.4); CHLORIDE, SERUM 111 MMOL/L (96-112); CO2 (CARBON DIOXIDE) 26 MMOL/L (24-34); GLOBULIN 3.1 G/DL (2.5-4.1); GLUCOSE, SERUM 92 MG/DL (60-99); POTASSIUM, SERUM 4.3 MMOL/L (3.5-5.3); SGOT(AST) 13 U/L (5-40); SGPT(ALT) 11 U/L (5-65); SODIUM, SERUM 143 MMOL/L (135-148); TOTAL BILIRUBIN 0.4 MG/DL (0-1.2); TOTAL PROTEIN 5.7 G/DL (6.0-8.5)
[2016-12-27 08:58] LABS: ALKALINE PHOSPHATASE 64 U/L (45-117); BUN (BLOOD UREA NITROGEN) 25 MG/DL (6-23); CREATININE 1.31 MG/DL (0.70-1.30); GFR AFRICAN AMERICAN 56 ML/MIN (>=60); GFR NON AFRICAN AMERICAN 49 ML/MIN (>=60)
[2016-12-28 04:42] LABS: BASOPHILS 0.3 %; BASOPHILS ABSOLUTE 0.02 10/3/uL (0.0-0.16); EOSINOPHILS 4.6 %; EOSINOPHILS ABSOLUTE 0.29 10/3/uL (0.0-0.53); HEMATOCRIT 27.1 % (40.0-51.0); HEMOGLOBIN 9.2 g/dL (13.6-17.8); IMMATURE GRANULOCYTES 0.3 %; IMMATURE GRANULOCYTES ABSOLUTE 0.02 10/3/uL (0.0-0.11); LYMPHOCYTES 22.6 %; LYMPHOCYTES ABSOLUTE 1.43 10/3/uL (0.67-4.30); MEAN CORPUS HGB CONC 33.9 g/dL (32.0-36.0); MEAN CORPUSCULAR HEMOGLOB 31.8 pg (26.0-34.0); MEAN CORPUSCULAR VOLUME 93.8 fL (80-100); MEAN PLATELET VOLUME 10.7 fL (9.2-13.0); MONOCYTES 12.2 %; MONOCYTES ABSOLUTE 0.77 10/3/uL (0.21-1.20); NEUTROPHILS ABSOLUTE 3.79 10/3/uL (2.02-8.40); PLATELET COUNT 120 10/3/uL (150-400); RBC DISTRIBUTION WIDTH 13.1 % (12.0-16.0); RED CELL COUNT 2.89 10/6/uL (4.7-6.1); WHITE BLOOD CELLS 6.3 10/3/uL (4.5-10.5)
[2016-12-28 04:43] LABS: MANUAL DIFF NO %
[2016-12-28 04:55] LABS: CALCIUM, SERUM 8.4 MG/DL (8.5-10.4); CHLORIDE, SERUM 112 MMOL/L (96-112); CO2 (CARBON DIOXIDE) 23 MMOL/L (24-34); CREATININE 1.18 MG/DL (0.70-1.30); GFR AFRICAN AMERICAN 64 ML/MIN (>=60); GFR NON AFRICAN AMERICAN 55 ML/MIN (>=60); GLUCOSE, SERUM 86 MG/DL (60-99); POTASSIUM, SERUM 4.8 MMOL/L (3.5-5.3); SODIUM, SERUM 142 MMOL/L (135-148)
[2016-12-28 04:56] LABS: BUN (BLOOD UREA NITROGEN) 20 MG/DL (6-23)
[2016-12-29] MEDS ORDERED: CEFADROXIL1 GM PO (13:43)
== END 2016-12-29 14:50 | disposition home health service (06) | DRG 698 ==
LOC: ER 08:55 → 2SO 13:29
PROVIDERS: Emergency Medicine
DX: T83.511A Infection and inflammatory reaction due to indwelling urethral catheter, initial encounter (principal); A41.9 Sepsis, unspecified organism; R65.20 Severe sepsis without septic shock; N17.9 Acute kidney failure, unspecified; G20 Parkinson's disease; E86.0 Dehydration; D69.6 Thrombocytopenia, unspecified; M84.48XA Pathological fracture, other site, initial encounter for fracture; G30.9 Alzheimer's disease, unspecified; F02.80 Dementia in other diseases classified elsewhere, unspecified severity, without behavioral disturbance, psychotic disturbance, mood disturbance, and anxiety; N39.0 Urinary tract infection, site not specified; I10 Essential (primary) hypertension; I25.10 Atherosclerotic heart disease of native coronary artery without angina pectoris; R33.8 Other retention of urine; N40.1 Benign prostatic hyperplasia with lower urinary tract symptoms; Y84.6 Urinary catheterization as the cause of abnormal reaction of the patient, or of later complication, without mention of misadventure at the time of the procedure; I70.0 Atherosclerosis of aorta; Z88.1 Allergy status to other antibiotic agents; Y92.9 Unspecified place or not applicable; Z95.5 Presence of coronary angioplasty implant and graft; Z79.82 Long term (current) use of aspirin
CPT/HCPCS: 71010; 74150; 80048; 80053; 81001; 82962; 83605; 84145; 85025; 87040; 87077; 87086; 87186; 93005; 96374; 99285; A9270-GY